=== PATIENT | female | born 1975 | race Caucasian/White ===

== ENCOUNTER 2022-06-14 00:36 | Emergency (ER) | payer MEDICAID ==
[~2022-06-14] VITALS: Ht 154.9 cm; Wt 57.6 kg
[2022-06-14 00:42] VITALS: BP_SYST 117
[2022-06-14 01:53] VITALS: BP_SYST 117
[2022-06-14] MEDS ORDERED: IBUP-1969 PO (02:36)
== END 2022-06-14 03:31 | disposition home or self-care (01) ==
LOC: SED 00:36
DX: S60.211A Contusion of right wrist, initial encounter (principal); Z88.0 Allergy status to penicillin; Z88.2 Allergy status to sulfonamides; Z88.8 Allergy status to other drugs, medicaments and biological substances; Z79.899 Other long term (current) drug therapy; W18.2XXA Fall in (into) shower or empty bathtub, initial encounter; Y93.89 Activity, other specified; Y92.89 Other specified places as the place of occurrence of the external cause; Y99.8 Other external cause status
CPT/HCPCS: 93971; 99284